=== PATIENT | female | born 1960 | race Caucasian/White ===

== ENCOUNTER 2018-10-09 11:36 | Observation (INO) ==
--- NOTE | 2018-10-02 09:36 | History & Physical Report ---
Date of Service October 02, 2018 Assessment & Plan (1) Presence of intrathecal pump: Despite numerous dosage increases to the intrathecal pump she does continue to complain of pain in the low back. There has been a problem with the residual volume expected vs actual. The pump has been flipping as shown in xrays. As the pump is not stabilized and she is not receiving the medication, it is recommended that the intrathecal pump and catheter delivery system be replaced. Risks and benefits were reviewed with the patient. The surgical procedure was explained to the patient and she understands. She would like to proceed with the intrathecal pump and catheter delivery system replacement /revision. History of Present Illness Primary Care Provider: Marily Guerrero DO Mrs. Sharma is a 58 year old white female that is known to the [facility] with lumbar post-laminectomy that has required the implantation of an intrathecal pump and catheter delivery system by Dr. Valentine in 2019. She did receive lumbar surgery greater than 5 years ago at [facility]. Prior to surgery she did try interventional procedures and numerous medications. The surgery did not alleviate the pain she has been taking Percocet 10/325mg which provides moderate pain relief. Pain is rated 5/10 at its best and 10/10 at its worst. The pain is located along the low back and along the left anterior thigh to the knee. Pain is aggravated with walking, laying supine and bending forwards. She lives a very sedentary life and typically watches TV and sleeps each day. Patient denies any bowel/bladder incontinence, saddle anesthesia, foot drop, leg weakness, falls. Case discussed with Dr. Ramires Allergies Allergy/AdvReac Type Severity Reaction Status Date / Time morphine AdvReac Intermediate "it made Verified 09/24/18 14:09 her mind go, worse than her mind already was" Home Medications Home Medications Medication Instructions Recorded Confirmed Type Ca 600 mg-D3 800 unit-mag oxide 50 1 tab PO DAILY tab 05/22/18 09/24/18 History xs-Gi-prylpm-manganese-boron tablet albuterol 90 mcg/actuation aerosol 90 mcg INH Q4H PRN 05/22/18 09/24/18 History inhaler aspirin 81 mg tablet,delayed 81 mg PO DAILY 05/22/18 09/24/18 History release clonidine HCl 0.1 mg tablet 0.1 mg PO BID 05/22/18 09/24/18 History clorazepate dipotassium 7.5 mg 7.5 mg PO TID PRN 05/22/18 09/24/18 History tablet docusate sodium 100 mg capsule 100 mg PO DAILY PRN 05/22/18 09/24/18 History losartan 100 mg tablet 100 mg PO DAILY 05/22/18 09/24/18 History mecobalamin (vitamin B12) 1,000 1,000 mcg SL DAILY 05/22/18 09/24/18 History mcg disintegrating tablet,sublingual metoprolol succinate ER 50 mg 50 mg PO DAILY 05/22/18 09/24/18 History capsule sprinkle, ext. release 24 hr nifedipine ER 90 mg 90 mg PO DAILY 05/22/18 09/24/18 History tablet,extended release 24 hr ondansetron HCl 4 mg tablet 4 mg PO TID PRN 05/22/18 09/24/18 History oxycodone-acetaminophen 10 mg-325 1 tab PO Q6H PRN 05/22/18 09/24/18 History mg tablet potassium chloride ER 20 mEq 20 meq PO DAILY 05/22/18 09/24/18 History tablet,extended release sertraline 100 mg tablet 100 mg PO DAILY 05/22/18 09/24/18 History tiotropium 2.5 mcg-olodaterol 2.5 1 inha INH DAILY gm 05/22/18 09/24/18 History mcg/actuation mist for inhalation topiramate 25 mg tablet 25 mg PO DAILY PRN tab 05/22/18 09/24/18 History fluticasone propionate 110 2 puffs INH DAILY gm 07/03/18 09/24/18 History mcg/actuation HFA aerosol inhaler Past Med/Surg History Medical History Lumbar post-laminectomy syndrome (Chronic) Presence of intrathecal pump (Chronic) 12/18/2017 hydromorphone Hypercholesterolemia (Chronic) Kidney disease (Chronic) only has 1/2 of 1 kidney, and missing the other kidney HTN (hypertension) (Chronic) Stroke (Chronic) Brain aneurysm (Chronic) Lung cancer (Resolved) Surgical History History of tonsillectomy (Chronic) History of hysterectomy (Chronic) History of cholecystectomy (Chronic) Previous back surgery (Chronic) "put a cadaver bone in to help her pain" S/P lobectomy of lung (Chronic) right side Social History Preferred Language: Thai Visual Impairment: Limited Hearing Ability: Hard of Hearing Beliefs That Will Affect Care: None marital status: Current Living Situation: Spouse current occupational status: unemployed Feels Safe at Home: Yes Smoking Status: Current every day smoker Hx Alcohol Use: No Hx Substance Use: No Review of Systems Review of Systems: All systems reviewed & are unremarkable except as noted in HPI & below Physical Exam Physical Exam: GENERAL: Mrs. Sharma is a 58 year old white female that is obese and physically deconditioned. Cognition intact and speech is appropriate. Mood and affect is appropriate. HEAD: Normocephalic; atraumatic. EYES: Pupils are round, equal, and reactive to light; EOM intact. ENT: No external ear discharge or lesions. No rhinorrhea or epistaxis. No mucosal lesions. NECK: Full ROM; trachea is midline; no TTP; no cervical lymphadenopathy. CARDIO: Regular rate and rhythm. No murmurs, rubs, or gallops. PULMONARY: Clear to auscultation. No wheezes, rales, or rhonchi. CHEST: Regular chest respiration and excursion. ABDOMEN: Intrathecal pump is located in the RLQ of the abdomen. The inferior anchors of the pump are loose. Moderate mobility with flipping. EXTREMITIES: 5/5 strength of upper and lower extremities. Uses extremities appropriately. BACK: Well healed surgical incision of the lumbar midline and thoracolumbar re gion. There is moderate tenderness along the lumbosacral region. No SI joint tenderness. NEURO: Cranial Nerves II-XII grossly intact with no focal deficits noted. AAO x 3. SKIN: No lesions, erythema, or rashes noted.
--- NOTE | 2018-10-02 16:48 | PAT Medication Instructions ---
Medication Instructions Date of Service October 02, 2018 Home Medications Medications aspirin 81 mg tablet,delayed release 81 mg PO QAM 05/22/18 [History Confirmed 10/02/18] clonidine HCl 0.1 mg tablet 0.1 mg PO BID 05/22/18 [History Confirmed 10/02/18] docusate sodium 100 mg capsule 100 mg PO DAILY PRN 05/22/18 [History Confirmed 10/02/18] losartan 100 mg tablet 100 mg PO QAM 05/22/18 [History Confirmed 10/02/18] metoprolol succinate ER 50 mg capsule sprinkle, ext. release 24 hr 50 mg PO QAM 05/22/18 [History Confirmed 10/02/18] nifedipine ER 90 mg tablet,extended release 24 hr 90 mg PO QAM 05/22/18 [History Confirmed 10/02/18] oxycodone-acetaminophen 10 mg-325 mg tablet 1 - 2 tab PO Q6H PRN 05/22/18 [History Confirmed 10/02/18] potassium chloride ER 20 mEq tablet,extended release 20 meq PO QAM 05/22/18 [History Confirmed 10/02/18] sertraline 100 mg tablet 100 mg PO QAM 05/22/18 [History Confirmed 10/02/18] fluticasone propionate 110 mcg[facility]uation [facility] [History Confirmed 10/02/18] albuterol sulfate 1 puff INHALATION Q6H PRN 10/02/18 [History Confirmed 10/02/18] cholecalciferol (vitamin D3) [Vitamin D3] 1,000 unit PO DAILY 10/02/18 [History Confirmed 10/02/18] fluticasone propionate [Flonase Allergy Relief] 1 spray INTRANASAL DAILY 10/02/18 [History Confirmed 10/02/18] pantoprazole 40 mg PO QAM 10/02/18 [History Confirmed 10/02/18] tiotropium-olodaterol [Stiolto Respimat] 2 puff INHALATION DAILY 10/02/18 [History Confirmed 10/02/18] Take morning of surgery With a small sip of water, OTHERWISE NOTHING TO EAT OR DRINK AFTER MIDNIGHT: Insulin Dependent Diabetic Patients * Test your blood sugar the morning of surgery * If Blood Sugar is GREATER THAN 150, take HALF of your regular dose of: * If Blood Sugar is LESS THAN 150, DO NOT TAKE ANY: Other Notes If you have any questions please call us at [phone] or [phone] or [phone] or [phone]
--- NOTE | 2018-10-02 16:50 | PAT Medication Instructions ---
Medication Instructions Date of Service October 02, 2018 Home Medications aspirin 81 mg tablet,delayed release 81 mg PO QAM clonidine HCl 0.1 mg tablet 0.1 mg PO BID docusate sodium 100 mg capsule 100 mg PO DAILY PRN losartan 100 mg tablet 100 mg PO QAM metoprolol succinate ER 50 mg capsule sprinkle, ext. release 24 hr 50 mg PO QAM nifedipine ER 90 mg tablet,extended release 24 hr 90 mg PO QAM oxycodone-acetaminophen 10 mg-325 mg tablet 1 - 2 tab PO Q6H PRN potassium chloride ER 20 mEq tablet,extended release 20 meq PO QAM sertraline 100 mg tablet 100 mg PO QAM fluticasone propionate 110 mcg/actuation HFA aerosol inhaler 2 puffs INH QAM albuterol sulfate 1 puff INHALATION Q6H PRN cholecalciferol (vitamin D3) [Vitamin D3] 1,000 unit PO DAILY fluticasone propionate [Flonase Allergy Relief] 1 spray INTRANASAL DAILY pantoprazole 40 mg PO QAM tiotropium-olodaterol [Stiolto Respimat] 2 puff INHALATION DAILY ASK your prescriber and surgeon aspirin 81 mg tablet,delayed release 81 mg PO QAM DO NOT take the morning of surgery docusate sodium 100 mg capsule 100 mg PO DAILY PRN losartan 100 mg tablet 100 mg PO QAM potassium chloride ER 20 mEq tablet,extended release 20 meq PO QAM cholecalciferol (vitamin D3) [Vitamin D3] 1,000 unit PO DAILY Take morning of surgery With a small sip of water, OTHERWISE NOTHING TO EAT OR DRINK AFTER MIDNIGHT: clonidine HCl 0.1 mg tablet 0.1 mg PO BID metoprolol succinate ER 50 mg capsule sprinkle, ext. release 24 hr 50 mg PO QAM nifedipine ER 90 mg tablet,extended release 24 hr 90 mg PO QAM oxycodone-acetaminophen 10 mg-325 mg tablet 1 - 2 tab PO Q6H PRN (if needed, may be taken up to four hours before surgery) sertraline 100 mg tablet 100 mg PO QAM fluticasone propionate 110 mcg/actuation HFA aerosol inhaler 2 puffs INH QAM albuterol sulfate 1 puff INHALATION Q6H PRN (if needed) fluticasone propionate [Flonase Allergy Relief] 1 spray INTRANASAL DAILY pantoprazole 40 mg PO QAM tiotropium-olodaterol [Stiolto Respimat] 2 puff INHALATION DAILY Other Notes If you have any questions please call us at [phone] or [phone] or [phone] or [phone]
--- NOTE | 2018-10-03 10:38 | Anesthesiology Consultation ---
Date of Service October 03, 2018 Assessment & Plan (1) Encounter for pre-operative examination: Cardio: 06/13/18: "doing well from a cardiac standpoint." Asymptomatic. "At this time no further cardiac workup is necessary." F/U as needed* Chart Review Chart Review: Acceptable Risk for Surgery and Patient seen in Pre Admission Testing Teaching & Discussion Pre-Anesthesia Teaching/Discussion Notes: Instructed NPO after midnight before surgery,except medications with 15 cc of water. Medication instructions provided according to the PAT guidelines. History Surgery Operation Date: 10/09/18 13:15 Proposed Procedures p Revision/Replacement of Intrathecal Pump Catheter and Possible Repositioning of Intrathecal Pain Pump - Johnathon Ramires MD, FIPP Height/Weight Height: 5 ft 5.5 in Weight: 114.1 kg Allergies Allergy/AdvReac Type Severity Reaction Status Date / Time morphine AdvReac Intermediate memory Verified 10/03/18 10:38 impairment Medications Home Medications Medication Instructions Recorded Confirmed Last Taken aspirin 81 mg tablet,delayed 81 mg PO QAM 05/22/18 10/02/18 Unknown release clonidine HCl 0.1 mg tablet 0.1 mg PO BID 05/22/18 10/02/18 Unknown docusate sodium 100 mg capsule 100 mg PO DAILY PRN 05/22/18 10/02/18 Unknown losartan 100 mg tablet 100 mg PO QAM 05/22/18 10/02/18 Unknown metoprolol succinate ER 50 mg 50 mg PO QAM 05/22/18 10/02/18 Unknown capsule sprinkle, ext. release 24 hr nifedipine ER 90 mg 90 mg PO QAM 05/22/18 10/02/18 Unknown tablet,extended release 24 hr oxycodone-acetaminophen 10 mg-325 1 - 2 tab PO Q6H PRN 05/22/18 10/02/18 Unknown mg tablet potassium chloride ER 20 mEq 20 meq PO QAM 05/22/18 10/02/18 Unknown tablet,extended release sertraline 100 mg tablet 100 mg PO QAM 05/22/18 10/02/18 Unknown fluticasone propionate 110 2 puffs INH QAM 07/03/18 10/02/18 Unknown mcg/actuation HFA aerosol inhaler albuterol sulfate 1 puff INHALATION Q6H PRN 10/02/18 10/02/18 Unknown cholecalciferol (vitamin D3) 1,000 unit PO DAILY 10/02/18 10/02/18 Unknown [Vitamin D3] fluticasone propionate [Flonase 1 spray INTRANASAL DAILY 10/02/18 10/02/18 Unknown Allergy Relief] pantoprazole 40 mg PO QAM 10/02/18 10/02/18 Unknown tiotropium-olodaterol [Stiolto 2 puff INHALATION DAILY 10/02/18 10/02/18 Unknown Respimat] Past Medical History Medical History Lumbar post-laminectomy syndrome Presence of intrathecal pump HTN (hypertension) Stroke 3+ years ago- on ASA; residual memory loss, right sided weakness Brain aneurysm neurology monitoring Lung cancer Chronic back pain Chronic kidney disease follows with nephrology (Dr. Dustin Grady; [place]) Chronic obstructive pulmonary disease stable Degenerative disc disease Depression Endometrial cancer Hearing deficit Morbid obesity Obesity Osteoarthritis Poor historian Pulmonary embolism during craniotomy (10+ years ago)- + IVC filter Exercise / Class Metabolic Activity III < 4 Walking/Shop/Light housework (uses cane ) Past Family History Family History Aunt FHx: breast cancer Sister Family history of diabetes mellitus Mother Family history of diabetes mellitus Past Surgical History Surgical History History of tonsillectomy History of cholecystectomy Previous back surgery "put a cadaver bone in to help her pain" S/P lobectomy of lung RIGHT History of appendectomy History of bronchoscopy History of cardiac cath 10+ YEARS AGO= NO STENTS History of craniotomy 10 years ago S/P [id number] S/P insertion of intrathecal pump + revision d/t infection Past Anesthesia History No Hx of Anesthesia Complications and No Family Hx of Anesthesia Complications History of PONV No Hx of PONV Social History Smoking Status: Current every day smoker tobacco type: cigarettes Smoking cigarettes per day: 1 PPD X 25 YEARS Do You Dip or Chew Tobacco: No Hx Alcohol Use: No Hx Substance Use: Yes substance use type: painkillers Review of Systems Chronic cough- felt stable. Patient denies chest pain, shortness of breath, palpitations. Physical Exam Vital Signs VITALS BP 111/68 P 55 TEMP 97.4 SP02 97%RA RESP 20 PHYSICAL Full neck and c-spine range of motion. Full TMJ range of motion. TMD 3 finger breaths Mallampati Score 1 (small oral opening) Dentition: full dentures upper/lower; edentulous Lungs: course breath sounds throughout Cardiac: regular rate and rhythm, no murmurs noted Spine: normal Carotid arteries: negative bruit Extremities: no edema Testing Laboratory Results 10/03/18 11:01 10/03/18 11:01 Urine Color Yellow 10/03/18 11:01 Urine Appearance Clear (Clear) 10/03/18 11:01 Urine pH 6.5 (4.5-7.5) 10/03/18 11:01 Ur Specific Ector 1.019 (1.000-1.030) 10/03/18 11:01 Urine Protein Negative (Negative) 10/03/18 11:01 Urine Glucose (UA) Negative (Negative) 10/03/18 11:01 Urine Ketones Negative (Negative) 10/03/18 11:01 Urine Nitrite Negative (Negative) 10/03/18 11:01 Ur Leukocyte Esterase Negative (Negative) 10/03/18 11:01 Electrocardiogram Date: 10/03/18 Findings: + SB @ (51) Chest X-Ray Date: 10/03/18 Postoperative changes consistent with median sternotomy. Pleural thickening and parenchymal scarring left hemithorax most likely chronic, although prior studies are not available for comparison. Right lung is clear. Echocardiogram Date: 02/02/17 Normal chamber sizes and LV wall motion. EF 60%. Poorly seen valve structures but no definite abnormalities noted.
--- NOTE | 2018-10-03 11:27 | XRay Report ---
XR chest Pre-admission PA/Lat CLINICAL HISTORY: pat preoperative evaluation COMPARISON STUDY: None FINDINGS: Prior median sternotomy. Pleural thickening and parenchymal scarring throughout the left he mithorax and left base. This is the appearance of chronic change although prior studies are not avail able for absolute confirmation. Right lung is clear. IMPRESSION: 1. Postoperative changes consistent with median sternotomy. 2. Pleural thickening and parenchymal scarring left hemithorax most likely chronic, although prior st udies are not available for comparison. 3. Right lung is clear. The above report was generated using voice recognition software. It may contain grammatical, syntax or spelling errors. Electronically signed by: Constantino Costa M.D. 10/03/2018 11:26 AM
[2018-10-03 11:50] LABS: Appearance Urine Clear (Clear); Basophils # (auto) 0.06 K/uL (0-0.2); Basophils % (auto) 0.7 %; Bilirubin Urine Negative (Negative); Blood Urine Negative (Negative); Color Urine Yellow; Eosinophils # (auto) 0.35 K/uL (0-0.5); Eosinophils % (auto) 3.8 %; Glucose Urine UA Negative (Negative); Hemoglobin 12.3 g/dL (12.0-16.0); Immature Granulocytes # (auto) 0.03 K/uL (0.00-0.02); Immature Granulocytes % (auto) 0.3 %; Ketones Urine Negative (Negative); Leukocyte Esterase Urine Negative (Negative); Lymphocytes % (auto) 24.9 %; Mean Corpuscular Hemoglobin 27.5 pg (25-34); Mean Corpuscular Hgb Conc 31.5 g/dL (32-36); Mean Corpuscular Volume 87.1 fL (80-100); Mean Platelet Volume 10.3 fL (7.4-10.4); Monocytes # (auto) 0.53 K/uL (0.11-0.59); Monocytes % (auto) 5.7 %; Neutrophils # (auto) 5.96 K/uL (1.4-6.5); Neutrophils % (auto) 64.6 %; Nitrite Urine Negative (Negative); Platelet Count 208 K/uL (130-400); Protein Urine Negative (Negative); Red Blood Count 4.48 M/uL (4.2-5.4); Specific Gravity Urine 1.019 (1.000-1.030); Urobilinogen Urine Negative (Negative); White Blood Count 9.23 K/uL (4.8-10.8); pH Urine 6.5 (4.5-7.5)
[2018-10-03 11:57] LABS: BUN Creatinine Ratio 12.2 (10-20); Calcium 8.5 mg/dl (8.5-10.1); Creatinine Clr Calc Pharmacy 56.8 ml/min; Est GFR (African American) 49.8; Potassium 4.2 mmol/L (3.5-5.1)
[~2018-10-09 11:36] MED LIST: CEFAZOLIN 2000MG 2,000 MG/15 ML SYR IV SCH; IOPAMIDOL INJ 61% 15 ML VIAL ONE; LIDOCAINE/EPINE 2% 1:100,000 20ML ONE; LR 15ML/HR IV SCH
--- NOTE | 2018-10-09 11:53 | History & Physical Bridge Note ---
Date of Service October 09, 2018 History & Physical Bridge Note I have examined the patient, reviewed the History & Physical and in the interval since the performance of the History & Physical I have noted the following changes of clinical significance: no changes noted Jerica Sharma is a 58-year-old female with a history of lumbar postlaminectomy syndrome with persistent back and radicular pain. Patient is scheduled today for expression of pump site due to pumping mobile,residual volume discrepancy and catheter cannot in the pump pocket with lack of efficacy with intrathecal opioid infusion. Past medical history: Hypertension, cerebral aneurysm, chronic kidney disease, CVA and lumbar postlaminectomy syndrome with chronic pain Past surgical history: Lumbar laminectomy, hysterectomy, cholecystectomy, lobectomy of the lung. Patient's medication list and allergy list have been reviewed. Review of systems: Denies fever, chills, cough, sputum production, shortness of breath, dyspnea, or anginal symptoms. Physical exam: GENERAL: She appears older than her stated age. Speech and cognition is intact. Mood and affect is appropriate. Sensorium is clear. She is in no acute distress. HEAD: Normocephalic; atraumatic. EYES: Pupils are round, equal, and reactive to light. EOM intact. Mucous memb ranes moist and pink. No oral lesions noted. ENT: No external ear discharge or lesions. No rhinorrhea or epistaxis. No mucosal lesions. NECK: Full ROM. Trachea is midline. No thyromegaly. No cervical lymphadenopathy. Carotids without bruit. CHEST: Regular chest respiration and excursion. ABDOMEN: Appears normal without any gross abnormal shape. No organomegaly appreciated. Bowel sounds are hypoactive. Intrathecal pump in the lower abdomen. EXTREMITIES: Full ROM and +5 strength of bilateral lower extremities. Distal sensation and pulses intact bilaterally. BACK: Loss of lumbar lordosis. Full ROM. No midline or facet tenderness. No SI joint tenderness. There is paravertebral muscle tenderness at the distal lumbosacral spine. NEURO: CN II-XII grossly intact with no focal deficits noted. Patellar Reflex: L +2 R +2 Achilles Reflex: L +2 R +2 Straight leg raising: Positive bilaterally 45 degrees with radicular pain SKIN: No lesions, erythema, or rashes noted. Assessment: Malfunctioning intrathecal pump/catheter system. Lumbar postlaminectomy syndrome. Recommendations: Exploration of the pump pocket with revision of the catheter if necessary and replacement of the pump. History reviewed, examination performed, pertinent laboratory and imaging studies reviewed. No contraindications noted to proceeding with the proposed procedure. Patient was advised that it may require revision and replacement of the entire system including the intrathecal portion of the catheter during this procedure. Potential risks including infection, nerve injury, bleeding, hematoma or seroma formation, persistent spinal fluid leak, additional surgical procedures to address these complications, postdural puncture headaches, as well as failure to achieve complete relief of preoperative symptoms after the procedure were discussed with the patient. Patient was advised that they would require routine refills of the pump for continuing therapy. Risks associated with anesthesia required to perform this procedure were reviewed. Alternatives to this procedure were discussed with the patient. Patient's questions were answered. Patient gave informed consent.
[2018-10-09] MEDS ORDERED: DEXAMETHASONE SOD INJ 4 MG/ML VIAL ONE (12:36)
[2018-10-09] MEDS ORDERED: fentaNYL citrate 100 MCG/2 ML VIAL ONE ×2 (12:36→14:27)
[2018-10-09] MEDS ORDERED: MIDAZOLAM HCL 1 MG/ML 2ML VIAL ONE (12:36)
[2018-10-09] MEDS ORDERED: ONDANSETRON INJ 2 MG/ML 2 ML VIAL ONE (12:36)
[2018-10-09] MEDS ORDERED: PROPOFOL IV EMULSION 10 MG/ML 20 ML VIAL IV ONE (12:36)
[2018-10-09] MEDS ORDERED: ROCURONIUM BROMIDE 10 MG/ML 5 ML VIAL ONE (12:36)
[2018-10-09] MEDS ORDERED: LIDOCAINE HCL 2% 2 ML VIAL/AMP(20MG/ML) INFIL ONE (12:36)
[2018-10-09] MEDS ORDERED: GLYCOPYRROLATE 0.2 MG/ML VIAL ONE ×2 (13:34→14:49)
[2018-10-09] MEDS ORDERED: ePHEDrine sulfate 50 MG/ML SYR ONE (13:57)
[2018-10-09] MEDS ORDERED: ALBUTEROL HFA INHALER 8.5 GM ONE (13:57)
[2018-10-09] MEDS ORDERED: ATROPINE SULFATE 0.1 MG/ML 10ML SYR IV PRN (14:10)
[2018-10-09] MEDS ORDERED: fentaNYL citrate 100 MCG/2 ML VIAL IV PRN (14:10)
[2018-10-09] MEDS ORDERED: METOCLOPRAMIDE HCL INJ 5 MG/ML 2 ML VIAL IV PRN (14:10)
[2018-10-09] MEDS ORDERED: ONDANSETRON INJ 2 MG/ML 2 ML VIAL IV PRN ×2 (14:10→15:22)
[2018-10-09] MEDS ORDERED: ePHEDrine sulfate 50 MG/ML AMP IV PRN (14:10)
[2018-10-09] MEDS ORDERED: HYDROmorphone INJ 2 MG/ML SYR/VIAL IV PRN (14:10)
[2018-10-09] MEDS ORDERED: PROMETHAZINE HCL 12.5 MG in SODIUM CHLORIDE 0.9% 50 ML IV PRN (14:10)
[2018-10-09] MEDS ORDERED: NEOSTIGMINE METHYLSULFATE 5 MG/5 ML SYR ONE (14:49)
--- NOTE | 2018-10-09 14:51 | Operative Report ---
Post Operative Report Pre & Post Diagnosis Operation Date: 10/09/18 13:15 Pre-Op Diagnosis: Malpositioning of Intrathecal Pump Catheter. Post-Op Diagnosis: Malpositioning of Intrathecal Pump Catheter Procedure Operation Date: 10/09/18 13:15 Actual Procedures Replacement Intrathecal Pump, Revision Pump Pocket, Interrogation and Reprogramming of Intrathecal Pump - Johnathon Ramires MD, RYANNE Surgeon Johnathon Ramires MD, RYANNE Manager Math None Estimated Blood Loss 5 Findings Consistent with Post-Op Diagnosis Pump rotating freely with catheter nodded and kinked behind the pump Specimens Intrathecal pump sent to pathology Drains None Anesthesia Type General Complications none Disposition Accompanied Patient To Recovery: No Disposition: Recovery Room Indications Malfunctioning and malpositioned intrathecal pump. Description of Procedure INTRATHECAL PUMP REPLACEMENT PROCEDURE PERFORMED: Intrathecal pump replacement PREOPERATIVE DIAGNOSIS: Malfunctioning and malpositioned intrathecal pump POSTOPERATIVE DIAGNOSIS: Same. COMPLICATIONS: None. SURGEON: Dr. Andre Ramires. ANESTHESIA: General/endotracheal tube. MATERIAL FORWARDED TO THE LAB: Explanted pump. EBL: 5 ml IMPLANTED PUMP SIZE: 20 mL. MEDICATIONS PLACED IN THE PUMP: Hydromorphone 2 mg/mL concentration INDICATIONS: The patient had an end of life pump with less than 1 month prior to system failure, thus requiring replacement. The patient was explained the risks, benefits, alternatives of the procedure and agreed to proceed as above. Informed consent was obtained and witnessed. A time out was performed after the patient was brought into the Operating Room. Antibiotics were given. The patient was then induced with general anesthesia without complications and was placed in the supine. The skin was prepped with DuraPrep and Betadine and draped in sterile fashion. The existing pump was identified and using a scalpel, electro cautery, and blunt dissection, the existing pump was exposed. The four retaining sutures were removed and the old pump was explanted. The catheter was disconnected from the old pump and free flowing CSF was noted. 1.5 cc of CSF was aspirated from the catheter. The new pump was opened and prepared according to [employer] standards and was filled with 19 mL of new medication of same type and concentration. The pump catheter was secured to the new pump and secured. The catheter access port was accessed and revealed free flowing CSF. Next, the pocket was irrigated with sterile normal saline with bacitracin. Hemostasis was checked. The new pump was placed into the pocket in the 12 O'clock position. The intrathecal pump was anchored in the pocket with 4-0 Prolene sutures. Wound was irrigated with Betadine-containing normal saline. Both wounds were closed in similar fashion using continuous 0 antibiotic-coated strata fix suture for deeper layer and running 3-0 antibiotic-coated strata fix suture for subcuticular layer. Prineo to the skin. Acticoat pressure dressing was applied to both sites. Abdominal binder was placed. Pump was reprogrammed to deliver the above medication and a single bolus to prime the intrathecal portion of the catheter. At the conclusion of the procedure, the pump was re-interrogated and reprogrammed to deliver 0.1 mg of hydromorphone per day. The patient was allowed to emerge from general anesthesia and transported to the recovery room in stable condition uneventfully. The patient will follow up at [facility] pain clinic within 7 days for a wound check and then plan to have the joseph removed at day 14. I attest to the content of the Intraoperative Record and any orders documented therein. Any exceptions are noted below.
[2018-10-09] MEDS ORDERED: MAGNESIUM CITRATE 296 ML/BTL PO PRN (15:22)
[2018-10-09] MEDS ORDERED: OXYCODONE HCL IR 5 MG TAB (IMMEDIATE RELEASE) PO PRN (15:22)
[2018-10-09] MEDS ORDERED: NALOXONE HCL 0.4 MG/1 ML VIAL/CARP IV PRN (15:22)
[2018-10-09] MEDS ORDERED: NO NARCOTICS OR SEDATIVES SCH (15:30)
--- NOTE | 2018-10-09 15:40 | Anesthesiology Progress Note ---
Date of Service October 09, 2018 Anesthesia Post Procedure Vital Signs Vital Signs: Temp Pulse Pulse Resp BP Pulse Ox 10/09/18 15:30 50 L 18 119/62 93 10/09/18 15:20 51 L 18 115/60 96 10/09/18 15:10 52 L 18 128/65 99 10/09/18 15:00 52 L 18 135/61 99 10/09/18 14:53 36.5 C 58 L 18 122/76 99 10/09/18 12:02 36.5 C 52 L 20 128/77 95 Pain Intensity Lower Back: Pain Intensity: 4 Transfer of Care Handoff Completed per policy Notes Mental Status: alert / awake / arousable Patient Amnestic to Procedure: Yes Nausea / Vomiting: adequately controlled Pain: adequately controlled Airway Patency, RR, SpO2: stable & adequate BP & HR: stable & adequate Hydration State: stable & adequate Anesthetic Complications: no major complications apparent
[2018-10-09] MEDS ORDERED: OXYCODONE/ACETAMINOPHEN 10-325 TAB PO PRN (16:01)
[2018-10-09] MEDS: cloNIDine HCl 0.1 MG TAB PO SCH (19:35)
[2018-10-09] MEDS ORDERED: DOCUSATE SODIUM 100 MG CAP PO SCH (21:00)
[2018-10-10] MEDS: cloNIDine HCl 0.1 MG TAB PO SCH (08:13)
--- NOTE | 2018-10-10 08:36 | Anesthesiology Progress Note ---
Date of Service October 10, 2018 Anesthesia Post Procedure Vital Signs Vital Signs: Temp Pulse Pulse Pulse Resp BP BP 10/10/18 08:20 36.4 C L 63 52 L 18 127/76 143/93 H 10/10/18 08:10 63 10/10/18 07:44 36.4 C L 56 L 18 143/93 H 10/10/18 06:55 74 10/10/18 03:18 10/10/18 03:15 36.6 C 63 19 144/64 H 10/09/18 23:13 36.4 C L 55 L 18 129/78 10/09/18 19:36 36.4 C L 45 L 16 127/76 10/09/18 16:22 36.5 C 49 L 16 131/81 10/09/18 16:03 36.5 C 53 L 16 121/70 10/09/18 15:40 36.4 C L 52 L 18 127/85 10/09/18 15:30 50 L 18 119/62 10/09/18 15:20 51 L 18 115/60 10/09/18 15:10 52 L 18 128/65 10/09/18 15:00 52 L 18 135/61 10/09/18 14:53 36.5 C 58 L 18 122/76 10/09/18 12:02 36.5 C 52 L 20 128/77 Pulse Ox 10/10/18 08:20 93 10/10/18 08:10 10/10/18 07:44 93 10/10/18 06:55 10/10/18 03:18 94 10/10/18 03:15 86 L 10/09/18 23:13 95 10/09/18 19:36 93 10/09/18 16:22 95 10/09/18 16:03 93 10/09/18 15:40 97 10/09/18 15:30 93 10/09/18 15:20 96 10/09/18 15:10 99 10/09/18 15:00 99 10/09/18 14:53 99 10/09/18 12:02 95 Pain Intensity Lower Back: Pain Intensity: 4 Notes Mental Status: alert / awake / arousable and participated in evaluation Patient Amnestic to Procedure: Yes Nausea / Vomiting: adequately controlled Pain: adequately controlled Airway Patency, RR, SpO2: stable & adequate BP & HR: stable & adequate Hydration State: stable & adequate Anesthetic Complications: no major complications apparent and Pt Satisfied with anesthetic care
[2018-10-10] MEDS ORDERED: FLUTICASONE HFA 110MCG INHALER INH SCH (09:00)
[2018-10-10] MEDS ORDERED: FLUTICASONE PROPIONATE NA SPR 16 GM BTL NAE SCH (09:00)
[2018-10-10] MEDS ORDERED: PANTOprazole 40 MG TAB PO SCH (09:00)
[2018-10-10] MEDS ORDERED: LOSARTAN POTASSIUM 50 MG TAB PO SCH (09:00)
[2018-10-10] MEDS ORDERED: NIFEdipine EXTENDED REL 30 MG TABCR PO SCH (09:00)
[2018-10-10] MEDS ORDERED: POTASSIUM CHLORIDE 20 MEQ TABCR PO SCH (09:00)
[2018-10-10] MEDS ORDERED: SERTRALINE HCL 100 MG TABLET PO SCH (09:00)
[2018-10-10] MEDS ORDERED: METOPROLOL SUCC 50MG EXT REL TAB PO SCH (09:00)
--- NOTE | 2018-10-10 09:00 | Pain Management Progress Note ---
Date of Service October 10, 2018 Assessment & Plan (1) Lumbar post-laminectomy syndrome: Present on Admission?: Yes (2) Presence of intrathecal pump: 1. Patient postoperative day 1 and appears to be doing well. Pump appears to be appropriately dosed at this time with adequate pain control without notable side effects. Will recommend she maintain hydromorphone at 0.1 mg/day. 2. Patient will leave her current dressing in place till the time of her next follow-up in the office 3. Appropriate use of abdominal binder was discussed and reviewed and she verbalized understanding. Patient will not shower but may sponge bath until the time of her next visit in the clinic. 4. Patient may utilize Percocet for as needed breakthrough pain associated with incisional site pain. She has a prescription for oxycodone/acetaminophen 10/325 mg at home as prescribed by her PCP. 5. Patient will follow-up in the office on 10/15/2018 at 1415. Present on Admission?: Yes Subjective Mrs. Sharma is postoperative day 1 status post intrathecal pump revision due to a non-adhered pump which was rotating within the pump pocket causing difficulties with catheter obstruction. Patient's intrathecal dose was reduced and reprogrammed to deliver 0.1 mg of hydromorphone per day due to the concern over intermittent versus continuous catheter obstruction. Patient is indicating adequate pain control of her chronic axial low back pain at this time. She has not experience difficulties with sedation, drowsiness or sleepiness. She reports some moderate discomfort over the incisional site but has not utilized any breakthrough pain medications. Patient is eager to be discharged to home at this time. Patient has no constitutional complaints. Physical Exam Physical Exam: General: Patient sitting up upon entering the room in no acute distress. Speech and thought process appropriate. Mood and affect appropriate. Cognition intact. Abdomen: Abdominal binder in place which was removed for visual inspection. Dressing in place in the right lower quadrant which was not removed for visual inspection. No evidence of edema, erythema or skin breakdown surrounding the incisional region. Patient is moderately tender to palpation. Lower extremities: SLR negative. Strength testing 5/5 and equal. Sensation intact without deficits. Neurologic: Cranial nerves grossly intact. Ambulatory function not witnessed.
--- NOTE | 2018-10-10 09:09 | Discharge Summary ---
Date of Service October 10, 2018 Admission HPI Per Admitting Provider Mrs. Sharma is a 58 year old white female that is known to the [facility] with lumbar post-laminectomy that has required the implantation of an intrathecal pump and catheter delivery system by Dr. Valentine in 2019. She did receive lumbar surgery greater than 5 years ago at [facility]. Prior to surgery she did try interventional procedures and numerous medications. The surgery did not alleviate the pain she has been taking Percocet 10/325mg which provides moderate pain relief. Pain is rated 5/10 at its best and 10/10 at its worst. The pain is located along the low back and along the left anterior thigh to the knee. Pain is aggravated with walking, laying supine and bending forwards. She lives a very sedentary life and typically watches TV and sleeps each day. Patient denies any bowel/bladder incontinence, saddle anesthesia, foot drop, leg weakness, falls. Discharge Data Procedures Performed Operation Date: 10/09/18 13:15 Actual Procedures p Replacement Intrathecal Pump, Revision Pump Pocket, Interrogation and Reprogramming of Intrathecal Pump(Right) - Johnathon Ramires MD, [facility] Hospital Course (1) Lumbar post-laminectomy syndrome: (2) Presence of intrathecal pump: 1. Patient postoperative day 1 and appears to be doing well. Pump appears to be appropriately dosed at this time with adequate pain control without notable side effects. Will recommend she maintain hydromorphone at 0.1 mg/day. 2. Patient will leave her current dressing in place till the time of her next follow-up in the office 3. Appropriate use of abdominal binder was discussed and reviewed and she verbalized understanding. Patient will not shower but may sponge bath until the time of her next visit in the clinic. 4. Patient may utilize Percocet for as needed breakthrough pain associated with incisional site pain. She has a prescription for oxycodone/acetaminophen 10/325 mg at home as prescribed by her PCP. 5. Patient will follow-up in the office on 10/15/2018 at 1415.
== END 2018-10-10 10:50 | disposition home or self-care (01) ==
LOC: 2S 11:36 → ASU 11:36